=== PATIENT | female | born 1985 | race Caucasian/White ===

== ENCOUNTER → 2017-11-03 | Outpatient (CLI) | payer BC ==
[2014-06-21 13:36] VITALS: BMI 28.9
[~2017-11-03] MED LIST: ACET-1718 PO; ALP1 PO; AMPH10TA20 PO; ARIP5TAB28 PO; BUPR300T55 PO; CHOL10005 PO; DOX100 PO; FLUT16SP19 NS; IBU800 PO; IBUP800T37 PO; LEVO5TAB28 PO; LOR5 PO; LOR5/325 PO; MULT1CAP41 PO; PER PO; PREN-127 PO; SULF-170 PO; TRAZ50 PO
--- NOTE | 2017-11-03 12:02 | RADIOLOGY IMAGING REPORT ---
FACILITY: [facility] PATIENT NAME: Danitza Wesley : 1985 MR: [id number] V: [id number] EXAM DATE: ORDERING PHYSICIAN: TIM MASSEY TECHNOLOGIST: Location: [facility] [place] Patient: Danitza Wesley : 1985 Visit/Account:[id number] Date of Sevice: 11/03/2017 CHEST PA AND LAT History: Shortness of breath, cough. Comparison none. FINDINGS: Lungs are clear, no effusion. No pneumothorax. Heart size within normal limits. Mediastinal contour w ithin normal limits. IMPRESSION: No evidence of acute cardiopulmonary disease. Report Dictated By: Marshal Calixto MD at 11/03/2017 11:56 AM Report E-Signed By: Marshal Calixto MD at 11/03/2017 11:57 AM WSN:[id number]
== END ==
LOC: RAD 11:28
PROVIDERS: ATTEND Nurse Practitioner Family
DX: R06.02 Shortness of breath (principal); R05 Cough
CPT/HCPCS: 71046

== ENCOUNTER → 2018-03-10 | Outpatient (CLI) | payer BC ==
[2014-06-21 13:36] VITALS: BMI 28.9
[~2018-03-10] MED LIST changes: +ALBU8.5H IH; +CLOB15OI16 TP; +MOME13HF
== END ==
LOC: LAB 09:44
PROVIDERS: ATTEND Obstetrics & Gynecology
DX: N89.8 Other specified noninflammatory disorders of vagina (principal)
CPT/HCPCS: 87210

== ENCOUNTER → 2018-06-23 | Outpatient (CLI) | payer BC ==
[2014-06-21 13:36] VITALS: BMI 28.9
[~2018-06-23] MED LIST changes: +CLOM50TA PO; +ESTR-33 PO; +LETPT PO; +[UNRECOGNIZED DRUG - CODE] IM
== END ==
LOC: LAB 12:33
PROVIDERS: ATTEND Obstetrics & Gynecology
DX: N92.6 Irregular menstruation, unspecified (principal)
CPT/HCPCS: 36415; 84702

== ENCOUNTER → 2018-07-01 | Outpatient (CLI) | payer BC ==
[2014-06-21 13:36] VITALS: BMI 28.9
--- NOTE | 2018-07-01 17:51 | RADIOLOGY IMAGING REPORT ---
FACILITY: [facility] PATIENT NAME: Danitza Wesley : 1985 MR: [id number] V: [id number] EXAM DATE: ORDERING PHYSICIAN: SOLOMON PAUL TECHNOLOGIST: Location: [facility] Patient: Danitza Wesley : 1985 Visit/Account:[id number] Date of Sevice: 07/01/2018 TRANSVAGINAL NON-OB HISTORY: Irregular uterine bleeding TECHNIQUE: Transvaginal ultrasound pelvis. COMPARISON: None. FINDINGS: Uterus: ; 7.5 cm length x 2.8 cm AP x 5.6 cm transverse. Myometrium: Unremarkable. Endometrium: Unremarkable; double thickness 5 mm. Cervix: Grossly negative. Ovaries: Right - 2.3 x 2.2 x 2.3 cm Left - 2.8 x 1.9 x 2.4 cm. There is a 1.3 cm simple left ovarian cyst Blood flow is documented in each ovary by duplex Doppler ultrasound. Adnexa: Grossly unremarkable. Free pelvic fluid: None. IMPRESSION: 1.3 cm simple left ovarian cyst otherwise unremarkable pelvic ultrasound Report Dictated By: Lucie Simmons MD at 07/01/2018 4:33 PM Report E-Signed By: Lucie Simmons MD at 07/01/2018 4:36 PM WSN:[email or web address]
== END ==
LOC: US 14:57
PROVIDERS: ATTEND Obstetrics & Gynecology
DX: N83.202 Unspecified ovarian cyst, left side (principal)
CPT/HCPCS: 76830

== ENCOUNTER → 2018-08-07 | Outpatient (CLI) | payer BC ==
[2014-06-21 13:36] VITALS: BMI 28.9
--- NOTE | 2018-08-10 11:08 | RADIOLOGY IMAGING REPORT ---
[place] [facility] [place] NAME: TYLER VICTOR : [id number] MR: [id number] V: [id number] EXAM DATE: [id number] ORDERING PHYSICIAN: SOLOMON PAUL TECHNOLOGIST: Melissa Mckinley PROCEDURE:BILATERAL DIAGNOSTIC DIGITAL MAMMOGRAM WITH CAD ASSISTED INTERPRETATION & 3D TOMOSYNTHESIS COMPARISON:Prior mammogram 11/11/12. INDICATIONS:RIGHT BREAST PAIN UPPER OUTER QUADRANT FINDINGS: Very dense heterogeneous fibroglandular tissue is seen throughout the breasts. The parenchymal pattern has remained stable allowing for difference in mammographic technique & patient positioning. There is no evidence of malignant appearing mass, malignant appearing calcifications or other secondary sign of malignancy in either breast. Today's Right breast Ultrasound demonstrated multiple cysts in the upper outer quadrant of the Right breast. The one in the 9 o'clock position appeared to contain a small internal nodule therefore a 6 month follow-up Right breast Ultrasound is recommended unless clinical findings warrant more immediate attention. DIAGNOSTIC CATEGORY 1--NEGATIVE. RECOMMENDATIONS: ROUTINE MAMMOGRAM AND CLINICAL EVALUATION. SIX MONTH FOLLOW-UP DIAGNOSTIC MAMMOGRAM: RIGHT BREAST. IMPRESSION: BIRADS 1: Negative. A 6 month follow-up Right breast Ultrasound recommended. Dictated by: Lucie Simmons M.D. on 08/07/2018 at 14:22 Transcribed by: NELL on 08/10/2018 at 9:31 Approved by: Lucie Simmons M.D. on 08/10/2018 at 11:07 [facility]
--- NOTE | 2018-08-10 11:08 | RADIOLOGY IMAGING REPORT ---
FACILITY: [facility] [place] PATIENT NAME: TYLER VICTOR : [id number] MR: [id number] V: [id number] EXAM DATE: ORDERING PHYSICIAN: SOLOMON PAUL TECHNOLOGIST: Dana Nielsen RT(R)(CT) PROCEDURE:US RIGHT BREAST COMPARISON:None. INDICATIONS:RIGHT BREAST PAIN UPPER OUTER QUADRANT FINDINGS: There are numerous cysts identified within the upper outer quadrant of the Right breast the largest measures 7.9 x 8.4 x 4.1mm in the 9 o'clock position 3cm from the nipple. There is a small mural nodule present. The next largest cyst is in the 10 o'clock position 4cm from the nipple measuring 7.5 x 7.2 x 6.3cm. DIAGNOSTIC CATEGORY 3--PROBABLY BENIGN FINDING. RECOMMENDATIONS: SIX MONTH FOLLOW-UP ULTRASOUND: RIGHT BREAST. IMPRESSION: BIRADS 3: Probably benign finding. There are multiple cysts in the upper outer quadrant of the Right breast which may account for patient's Right breast pain. A 6 month follow-up Right breast Ultrasound is recommended to evaluate the cysts in the 9 o'clock position with a small mural nodule. Dictated by: Lucie Simmons M.D. on 08/07/2018 at 14:32 Transcribed by: NELL on 08/10/2018 at 9:37 Approved by: Lucie Simmons M.D. on 08/10/2018 at 11:07 [facility]
== END ==
LOC: US 04:11
PROVIDERS: ATTEND Obstetrics & Gynecology
DX: N63.11 Unspecified lump in the right breast, upper outer quadrant (principal); Z80.3 Family history of malignant neoplasm of breast
CPT/HCPCS: 77062; 77066

== ENCOUNTER → 2019-01-29 | Outpatient (CLI) | payer BC ==
[2014-06-21 13:36] VITALS: BMI 28.9
--- NOTE | 2019-01-29 15:33 | RADIOLOGY IMAGING REPORT ---
FACILITY: [facility] PATIENT NAME: TYLER VICTOR : [id number] MR: [id number] V: [id number] EXAM DATE: ORDERING PHYSICIAN: SOLOMON PAUL TECHNOLOGIST: Vilma Fernandez RDMS(ABD,OBGYN,BR),RVT PROCEDURE:US RIGHT BREAST COMPLETE COMPARISON:Prior Right breast Ultrasound of 08/07/18 INDICATIONS:6 month follow up abnormal screening mammo AREA SCANNED: The lateral portion of the Right breast from the 6-12 o'clock position. FINDINGS: Numerous cysts are seen throughout the lateral portion of the Right breast ranging in size from 4.3mm to 8.1mm. The previously noted cyst with the mural nodule in the 9 o'clock position of the Right breast appears unchanged. Cine loops were obtained through this location demonstrating the echogenic nodular area to actually represent adjacent echogenic breast tissue indenting into the system, not a true nodule. DIAGNOSTIC CATEGORY 2--BENIGN FINDING. RECOMMENDATIONS: CLINICAL EVALUATION. IMPRESSION: BIRADS 2: Benign finding. There are multiple Right sided simple breast cysts. Dictated by: Lucie Simmons M.D. on 01/29/2019 at 13:47 Transcribed by: ROSE on 01/29/2019 at 14:16 Approved by: Lucie Simmons M.D. on 01/29/2019 at 15:32 [facility]
== END ==
LOC: US 01:29
PROVIDERS: ATTEND Obstetrics & Gynecology
DX: Z09 Encounter for follow-up examination after completed treatment for conditions other than malignant neoplasm (principal)